=== PATIENT | female | born 1970 | race African-American/Black ===

== ENCOUNTER 2018-12-24 09:14 | Day surgery (SDC) | payer MEDICAID ==
[~2018-12-24] VITALS: Ht 170.2 cm; Wt 73.5 kg
[2018-12-24] MEDS ORDERED: FLUO20TA29 MT (09:35)
[2018-12-24] MEDS ORDERED: TICA90TA MT (09:35)
[2018-12-24] MEDS ORDERED: ATOR40TA70 MT (09:35)
[2018-12-24] MEDS ORDERED: ASPI-1393 MT (09:35)
[2018-12-24 10:07] LABS: UCG SCREEN NEGATIVE
[2018-12-24] MEDS ORDERED: FENTANYL CITRATE/PF 50MCG/ML 2ML VIAL ONE (10:25)
[2018-12-24] MEDS ORDERED: MIDAZOLAM HCL 2 MG/2 ML VIAL ONE (10:25)
[2018-12-24] MEDS ORDERED: TETRACAINE/BENZOCAINE/BUTAMBEN 20 GM SPRAY MM ONE (10:27)
[2018-12-24] MEDS ORDERED: LIDOCAINE HCL 2% JELLY 5ML ONE (10:27)
== END 2018-12-24 13:15 | disposition home or self-care (01) ==
LOC: CARD 09:14
PROVIDERS: ATTEND Specialist
DX: I63.9 Cerebral infarction, unspecified (principal); I10 Essential (primary) hypertension; E78.00 Pure hypercholesterolemia, unspecified; Z79.82 Long term (current) use of aspirin; Z79.899 Other long term (current) drug therapy; Z82.49 Family history of ischemic heart disease and other diseases of the circulatory system
CPT/HCPCS: 81025; 93312; J2250; J3010